=== PATIENT | male | born 1950 | race Two or more races ===

== ENCOUNTER 2021-11-21 07:18 | Day surgery (SDC) | payer OTHER ==
[~2021-11-21] VITALS: Ht 170.2 cm; Wt 70.3 kg
[~2021-11-21 07:18] MED LIST: DIVALPROEX SOD250 M1 PO
== END 2021-11-21 17:45 | disposition home or self-care (01) ==
LOC: CIR.AMB 07:18
PROVIDERS: ATTEND Specialist
DX: K40.90 Unilateral inguinal hernia, without obstruction or gangrene, not specified as recurrent (principal); Z20.822 Contact with and (suspected) exposure to COVID-19; Z86.16 Personal history of COVID-19; G40.802 Other epilepsy, not intractable, without status epilepticus